=== PATIENT | male | born 1960 | race African-American/Black ===

== ENCOUNTER 2019-12-11 15:24 | Inpatient (IN) | payer BC, OTHER ==
[2019-12-11] MEDS ORDERED: MAGNESIUM CITRATE 300 ML BOTTLE PO PRN (15:31)
[2019-12-11] MEDS ORDERED: MAGNESIUM HYDROX 2400MG/30ML ORAL SUSPENSION 30 ML CUP PO PRN (15:31)
[2019-12-11] MEDS ORDERED: IBUPROFEN 400 MG TABLET (FP) PO PRN (15:31)
[2019-12-11] MEDS ORDERED: ACETAMINOPHEN 325 MG TABLET (FP) PO PRN (15:31)
[2019-12-11] MEDS ORDERED: P-EPHED 60MG/TRIPROLIDI 2.5MG TABLET PO PRN (15:31)
[2019-12-11] MEDS ORDERED: MAG HYDROX/AL HYDROX/SIMETH 30 ML UNIT-DOSE CUP PO PRN (15:31)
[2019-12-11] MEDS ORDERED: guaiFENesin 200 MG/10 ML 10 ML UNIT-DOSE CUPS PO PRN (15:31)
[2019-12-11] MEDS ORDERED: NICOTINE POLACRILEX 2 MG GUM BC PRN (15:31)
[2019-12-11] MEDS ORDERED: LOPERAMIDE HCL 2 MG CAPSULE PO PRN (15:31)
--- NOTE | 2019-12-11 15:42 | HP ---
[facility] Re[facility] Assess/Revision - Admission History Admitted to Rehab from: [facility] Date of Admission to Rehab: 12/11/19 - Findings Detox History & Physical reviewed: Yes Concur with findings: Yes Comments/Additional Findings: TRANSFERRED FROM DETOX TO REHAB ADMISSION PER PROTOCOL Inpatient Rehab Admission - Rehab Decision to Admit Inpatient rehab admission?: Yes - Initial Determination Are CD services needed?: Yes Free of communicable disease: Yes Not in need of hospitalization: Yes - Rehab Admission Criteria Previous failed treatment: Yes Poor recovery environment: Yes Comorbidities: Yes Lacks judgement: Yes Patient is meeting Inpatient Rehab admission criteria:: Yes
[2019-12-11] MEDS ORDERED: MASKS NR ONE (19:17)
[2019-12-11] MEDS ORDERED: INSULIN (NOVOLOG) ASPART 100 UNITS/ML 10ML VIAL ONE ×2 (20:57→22:04)
[2019-12-11] MEDS: THIAMINE HCL 100 MG TABLET (FP) PO SCH (21:10)
[2019-12-11] MEDS: ATORVASTATIN CA 20 MG TABLET (FP) PO SCH (21:10)
[2019-12-11] MEDS: traZODone HCL 50 MG TABLET (FP) PO SCH (21:10)
[2019-12-11] MEDS: MELATONIN 5 MG TABLETS PO SCH (21:10)
[2019-12-11] MEDS: INSULIN (LEVEMIR) 100 UNITS/ML UNITS SQ SCH (21:12)
[2019-12-11] MEDS: INSULIN SLIDING SCALE (NOVOLOG) 1 VIAL SQ SCH (21:13)
[2019-12-12] MEDS ORDERED: ARIPiprazole 15 MG TABLET PO SCH (10:00)
[2019-12-12] MEDS: amLODIPine BESYLATE 5 MG TABLET (FP) PO SCH (12:11)
[2019-12-12] MEDS: ASPIRIN 81 MG CHEWABLE TABLETS PO SCH (12:11)
[2019-12-12] MEDS: DOLUTEGRAVIR SODIUM 50 MG TABLET (NON-FORMULARY) PO SCH (12:12)
[2019-12-12] MEDS: PRENATAL VITAMINS W/ FOLIC ACID TABLET (FP) PO SCH (12:13)
[2019-12-12] MEDS: RILPIVIRINE HCL 25 MG TABLET PO SCH (12:14)
[2019-12-12] MEDS: EMTRICITABINE/TENOFOV ALAFENAM (DESCOVY) TABLET PO SCH (12:15)
[2019-12-12] MEDS: NICOTINE 21 MG/24 HOURS TOPICAL PATCH TD SCH (12:15)
--- NOTE | 2019-12-12 15:31 | CONSULT ---
[facility] Psychiatric Consult - Data Date of interview: 12/12/19 Admission source: Transfer from [address] [place] [address]. Identifying data: Detoxification completed at [address] [place] [address]. Patient has entered rehabilitation treatment to consolidate sobriety and continue maintenance medications for co-morbid mood disorder. TORREY issues : alcohol, crack/cocaine, nicotine. Patient is a 58 y/o AA male, single, father of one, domiciled, unemployed and supported on SSD benefits. Substance Abuse History: Discussed with the patient. TORREY profile as follows : Alcohol. Substance amount: 6 pack x 24 ounce. Frequency of use: Daily. Substance route: Oral. Date of Last Use: 12/06/19 (First use age 22 y). Cocaine-Crack. Substance amount: $40. Frequency of use: Daily. Substance route: Smoking. Date of Last Use: 12/05/19 (First use age 32 y). Nicotine. Substance amount: one pack. Frequency of use: Daily. Substance route: Smoking. Date of Last Use: 12/06/19 (First use age 89y)M. History Source: Patient. Limitations to Obtaining History: No Limitations. - Smoking History. Smoking history: Current every day smoker. Have you smoked in the past 12 months: Yes. Aproximately how many cigarettes per day: 20. Smoking history: Current every day smoker. Have you smoked in the past 12 months: Yes. Aproximately how many cigarettes per day: 20. Hx Chewing Tobacco Use: No. Initiated information on smoking cessation: Yes. 'Breaking Loose' booklet given: 12/06/19. - Substances abused. Alcohol. Substance route: Oral. Frequency: Daily. Amount used: vodka- 6pts / beers- 6pk. Age of first use: 22. Date of last use: 12/06/19. Crack. Substance route: Smoking. Frequency: Daily. Amount used: $300. Age of first use: 32. Date of last use: 12/05/19. Medical History: Medical profile is remarkable for hypertension and diabetes mellitus. No known allergies. Psychiatric History: Patient endorses history of " a lot of " psychiatric admissions to [facility]. Onset of psychiatric disturbances : age 32. Diagnosed with MDD (self-report). Mr Barrios sees a psychiatrist, Dr Eldridge, on a monthly basis at the [facility] clinic for medication management (ability 15 mg/day). Patient denies history of suicide attempts. Physical/Sexual Abuse/Trauma History: Patient denies. Additional Comment: Urine drug screen results: RHINA-Cocaine. Noted. Mental Status Exam - Mental Status Exam Alert and Oriented to: Time, Place, Person Cognitive Function: Good Patient Appearance: Disheveled Mood: Withdrawn Affect: Mood Congruent, Constricted Patient Behavior: Appropriate, Cooperative Speech Pattern: Clear, Appropriate Voice Loudness: Normal Thought Process: Goal Oriented Thought Disorder: Not Present Hallucinations: Denies Suicidal Ideation: Denies Homicidal Ideation: Denies Insight/Judgement: Fair Sleep: Well Appetite: Good Gait/Station: Normal Psychiatric Findings - Problem List ([place] 1, 2,3) (1) Alcohol use disorder Current Visit: Yes Status: Chronic (2) Cocaine dependence Current Visit: Yes Status: Chronic Qualifiers: Substance use status: uncomplicated Qualified Code(s): F14.20 - Cocaine dependence, uncomplicated (3) Nicotine dependence Current Visit: Yes Status: Chronic Qualifiers: Nicotine product type: cigarettes Substance use status: in withdrawal Qualified Code(s): F17.213 - Nicotine dependence, cigarettes, with withdrawal (4) History of depression Current Visit: Yes Status: Chronic - Initial Treatment Plan Initial Treatment Plan: Continuation of psychoeducation. Support. Motivational counseling. Group/individual therapy (with observance of COVID-19 guidelines : social distancing, hand washing, face mask wearing). Resumed, with the patient's consent : abilify 10 mg po daily + trazodone 50 mg po hs. Observation.
[2019-12-12] MEDS: ATORVASTATIN CA 20 MG TABLET (FP) PO SCH (22:32)
[2019-12-12] MEDS: traZODone HCL 50 MG TABLET (FP) PO SCH (22:32)
[2019-12-12] MEDS: THIAMINE HCL 100 MG TABLET (FP) PO SCH (22:32)
[2019-12-12] MEDS ORDERED: INSULIN (NOVOLOG) ASPART 100 UNITS/ML 10ML VIAL ONE (22:32)
[2019-12-12] MEDS: MELATONIN 5 MG TABLETS PO SCH (22:33)
[2019-12-12] MEDS: INSULIN SLIDING SCALE (NOVOLOG) 1 VIAL SQ SCH (22:34)
[2019-12-12] MEDS: INSULIN (LEVEMIR) 100 UNITS/ML UNITS SQ SCH (22:35)
[2019-12-13] MEDS: ASPIRIN 81 MG CHEWABLE TABLETS PO SCH (11:10)
[2019-12-13] MEDS: RILPIVIRINE HCL 25 MG TABLET PO SCH (11:10)
[2019-12-13] MEDS: NICOTINE 21 MG/24 HOURS TOPICAL PATCH TD SCH (11:10)
[2019-12-13] MEDS: PRENATAL VITAMINS W/ FOLIC ACID TABLET (FP) PO SCH (11:10)
[2019-12-13] MEDS: EMTRICITABINE/TENOFOV ALAFENAM (DESCOVY) TABLET PO SCH (11:10)
[2019-12-13] MEDS: amLODIPine BESYLATE 5 MG TABLET (FP) PO SCH (11:10)
[2019-12-13] MEDS: DOLUTEGRAVIR SODIUM 50 MG TABLET (NON-FORMULARY) PO SCH (11:11)
[2019-12-13] MEDS: ARIPiprazole 10 MG TABLET PO SCH (11:40)
[2019-12-13] MEDS ORDERED: INSULIN (NOVOLOG) ASPART 100 UNITS/ML 10ML VIAL SQ ONE (16:46)
--- NOTE | 2019-12-13 16:50 | PN ---
[facility] Progress Note Note: Patient's blood sugar is B/S 560mg/dl. Patient is asymptomatic Vital Signs Temperature 97.3 F L 12/13/19 09:30 Pulse Rate 79 12/13/19 09:30 Respiratory Rate 18 12/13/19 09:30 Blood Pressure 132/88 12/13/19 09:30 O2 Sat by Pulse Oximetry (%) 97 12/13/19 06:09 BGM Results 12/11/19 12/12/19 12/13/19 21:08 20:34 16:38 POC Glucometer 437 UNITS UNITS 420 UNITS UNITS 560 UNITS UNITS (80-120) (80-120) (80-120) Action: Insulin Novolog 10 units SQ ordered
[2019-12-13] MEDS: ATORVASTATIN CA 20 MG TABLET (FP) PO SCH (21:34)
[2019-12-13] MEDS: MELATONIN 5 MG TABLETS PO SCH (21:34)
[2019-12-13] MEDS: traZODone HCL 50 MG TABLET (FP) PO SCH (21:34)
[2019-12-13] MEDS: INSULIN (LEVEMIR) 100 UNITS/ML UNITS SQ SCH (21:34)
[2019-12-13] MEDS: THIAMINE HCL 100 MG TABLET (FP) PO SCH (21:34)
[2019-12-13] MEDS: INSULIN SLIDING SCALE (NOVOLOG) 1 VIAL SQ SCH (21:35)
[2019-12-14] MEDS: DOLUTEGRAVIR SODIUM 50 MG TABLET (NON-FORMULARY) PO SCH (10:59)
[2019-12-14] MEDS: amLODIPine BESYLATE 5 MG TABLET (FP) PO SCH (10:59)
[2019-12-14] MEDS: ASPIRIN 81 MG CHEWABLE TABLETS PO SCH (10:59)
[2019-12-14] MEDS: RILPIVIRINE HCL 25 MG TABLET PO SCH (11:00)
[2019-12-14] MEDS: ARIPiprazole 10 MG TABLET PO SCH (11:00)
[2019-12-14] MEDS: EMTRICITABINE/TENOFOV ALAFENAM (DESCOVY) TABLET PO SCH (11:01)
[2019-12-14] MEDS: NICOTINE 21 MG/24 HOURS TOPICAL PATCH TD SCH (11:02)
[2019-12-14] MEDS: PRENATAL VITAMINS W/ FOLIC ACID TABLET (FP) PO SCH (11:02)
[2019-12-14] MEDS: INSULIN SLIDING SCALE (NOVOLOG) 1 VIAL SQ SCH ×3 (11:08→21:59)
[2019-12-14] MEDS ORDERED: INSULIN (NOVOLOG) ASPART 100 UNITS/ML 10ML VIAL ONE (11:09)
[2019-12-14] MEDS: THIAMINE HCL 100 MG TABLET (FP) PO SCH (21:57)
[2019-12-14] MEDS: ATORVASTATIN CA 20 MG TABLET (FP) PO SCH (21:57)
[2019-12-14] MEDS: traZODone HCL 50 MG TABLET (FP) PO SCH (21:58)
[2019-12-14] MEDS: INSULIN (LEVEMIR) 100 UNITS/ML UNITS SQ SCH (22:00)
[2019-12-14] MEDS: MELATONIN 5 MG TABLETS PO SCH (22:02)
[2019-12-15] MEDS ORDERED: INSULIN (NOVOLOG) ASPART 100 UNITS/ML 10ML VIAL ONE (06:44)
[2019-12-15] MEDS: INSULIN SLIDING SCALE (NOVOLOG) 1 VIAL SQ SCH ×2 (06:49→11:54)
[2019-12-15] MEDS: EMTRICITABINE/TENOFOV ALAFENAM (DESCOVY) TABLET PO SCH (09:41)
[2019-12-15] MEDS: DOLUTEGRAVIR SODIUM 50 MG TABLET (NON-FORMULARY) PO SCH (09:41)
[2019-12-15] MEDS: PRENATAL VITAMINS W/ FOLIC ACID TABLET (FP) PO SCH (09:42)
[2019-12-15] MEDS: RILPIVIRINE HCL 25 MG TABLET PO SCH (09:42)
[2019-12-15] MEDS: amLODIPine BESYLATE 5 MG TABLET (FP) PO SCH (09:43)
[2019-12-15] MEDS: ASPIRIN 81 MG CHEWABLE TABLETS PO SCH (09:43)
[2019-12-15] MEDS: NICOTINE 21 MG/24 HOURS TOPICAL PATCH TD SCH (09:44)
--- NOTE | 2019-12-15 10:53 | PN ---
[facility] Progress Note Note: Pt is a 58 y/o male admitted to rehab from [address] [place] [address] after completion. PMHx:DM-insulin dependent(on Insulin Lispro 16 units sc tid with meals and Levemir 30 units sc hs. Pt brought in his insulin and requests he wants to use own insulin medications(packages unused and sealed). Pt has a prescriber, Dr. Anuradha Yung; Ph: Pt currently on Hospital formulary Novolog. HIV+(on meds) HTN(on med) HLD(on med) Vital Signs - 24 hr 12/14/19 12/14/19 12/15/19 12:47 20:28 06:38 Temperature 97.7 F Pulse Rate 94 H Respiratory 18 Rate Blood Pressure 142/75 O2 Sat by Pulse 95 95 95 Oximetry (%) Laboratory Tests 12/11/19 12/12/19 12/13/19 21:08 20:34 16:38 POC Glucometer 437 420 560 12/13/19 12/14/19 12/14/19 20:10 11:05 16:34 POC Glucometer 333 417 319 12/14/19 12/15/19 20:07 06:43 POC Glucometer 348 389 Alert o x 3 nad oob ambulating with steady gait. Rehab pt DM-uncontrolled P:Reviewed pt's insulin/BGM hx and discussed with pharmacist Poly Avitia and pt may use own medication as requested. Pt's Home Insulin Lispro restarted as 10 units sc TID with meals. Will adjust insulin with BGM monitoring results. D/w pt and he is agreeable with poc.
[2019-12-15] MEDS: ARIPiprazole 10 MG TABLET PO SCH (11:12)
[2019-12-15] MEDS: PATIENT'S OWN MEDICATION (NON-FORMULARY) (Insulin Lispro [Humalog] 10 UNIT) SQ SCH ×2 (12:00→16:42)
[2019-12-15] MEDS ORDERED: INSULIN LISPRO 16 UNIT SQ SCH (12:00)
[2019-12-15] MEDS: traZODone HCL 50 MG TABLET (FP) PO SCH (21:39)
[2019-12-15] MEDS: ATORVASTATIN CA 20 MG TABLET (FP) PO SCH (21:39)
[2019-12-15] MEDS: MELATONIN 5 MG TABLETS PO SCH (21:39)
[2019-12-15] MEDS: THIAMINE HCL 100 MG TABLET (FP) PO SCH (21:39)
[2019-12-15] MEDS: INSULIN (LEVEMIR) 100 UNITS/ML UNITS SQ SCH (21:40)
[2019-12-16] MEDS: PATIENT'S OWN MEDICATION (NON-FORMULARY) (Insulin Lispro [Humalog] 10 UNIT) SQ SCH (07:37)
[2019-12-16] MEDS: PRENATAL VITAMINS W/ FOLIC ACID TABLET (FP) PO SCH (09:49)
[2019-12-16] MEDS: ASPIRIN 81 MG CHEWABLE TABLETS PO SCH (09:49)
[2019-12-16] MEDS: EMTRICITABINE/TENOFOV ALAFENAM (DESCOVY) TABLET PO SCH (09:50)
[2019-12-16] MEDS: DOLUTEGRAVIR SODIUM 50 MG TABLET (NON-FORMULARY) PO SCH (09:50)
[2019-12-16] MEDS: amLODIPine BESYLATE 5 MG TABLET (FP) PO SCH (09:50)
[2019-12-16] MEDS: ARIPiprazole 10 MG TABLET PO SCH (09:50)
[2019-12-16] MEDS: RILPIVIRINE HCL 25 MG TABLET PO SCH (09:50)
[2019-12-16] MEDS: NICOTINE 21 MG/24 HOURS TOPICAL PATCH TD SCH (09:52)
[2019-12-16] MEDS: INSULIN LISPRO 12 UNIT SQ SCH ×2 (12:06→16:32)
--- NOTE | 2019-12-16 14:35 | PN ---
[facility] Progress Note Note: Pt requesting re-evaluation of insulin dose per BGM results. Vital Signs - 24 hr 12/15/19 12/16/19 20:33 06:15 Temperature 97.5 F L Pulse Rate 101 H Respiratory 18 Rate Blood Pressure 123/77 O2 Sat by Pulse 95 94 L Oximetry (%) Alert o x 3 nad oob ambulating with steady gait D/w pt and Increased Insulin Lispro to 12 units sc TIDCM today. Monitor BGM and adjust to pre-hospital home dose if necessary.
[2019-12-16] MEDS: traZODone HCL 50 MG TABLET (FP) PO SCH (21:21)
[2019-12-16] MEDS: INSULIN (LEVEMIR) 100 UNITS/ML UNITS SQ SCH (21:22)
[2019-12-16] MEDS: ATORVASTATIN CA 20 MG TABLET (FP) PO SCH (21:22)
[2019-12-16] MEDS: THIAMINE HCL 100 MG TABLET (FP) PO SCH (21:22)
[2019-12-16] MEDS: MELATONIN 5 MG TABLETS PO SCH (21:22)
[2019-12-17] MEDS: INSULIN LISPRO 12 UNIT SQ SCH ×3 (08:02→16:59)
[2019-12-17] MEDS ORDERED: SEMAGLUTIDE 0.5 MG SQ SCH (10:00)
[2019-12-17] MEDS: ASPIRIN 81 MG CHEWABLE TABLETS PO SCH (10:01)
[2019-12-17] MEDS: PRENATAL VITAMINS W/ FOLIC ACID TABLET (FP) PO SCH (10:01)
[2019-12-17] MEDS: amLODIPine BESYLATE 5 MG TABLET (FP) PO SCH (10:01)
[2019-12-17] MEDS: NICOTINE 21 MG/24 HOURS TOPICAL PATCH TD SCH (10:02)
[2019-12-17] MEDS: ARIPiprazole 10 MG TABLET PO SCH (10:02)
[2019-12-17] MEDS: RILPIVIRINE HCL 25 MG TABLET PO SCH (10:02)
[2019-12-17] MEDS: DOLUTEGRAVIR SODIUM 50 MG TABLET (NON-FORMULARY) PO SCH (10:03)
[2019-12-17] MEDS: EMTRICITABINE/TENOFOV ALAFENAM (DESCOVY) TABLET PO SCH (10:03)
[2019-12-17] MEDS: traZODone HCL 50 MG TABLET (FP) PO SCH (21:47)
[2019-12-17] MEDS: THIAMINE HCL 100 MG TABLET (FP) PO SCH (21:47)
[2019-12-17] MEDS: ATORVASTATIN CA 20 MG TABLET (FP) PO SCH (21:47)
[2019-12-17] MEDS: MELATONIN 5 MG TABLETS PO SCH (21:48)
[2019-12-17] MEDS: INSULIN (LEVEMIR) 100 UNITS/ML UNITS SQ SCH (21:49)
[2019-12-18] MEDS: INSULIN LISPRO 12 UNIT SQ SCH ×3 (08:09→17:19)
[2019-12-18] MEDS: amLODIPine BESYLATE 5 MG TABLET (FP) PO SCH (09:35)
[2019-12-18] MEDS: DOLUTEGRAVIR SODIUM 50 MG TABLET (NON-FORMULARY) PO SCH (09:35)
[2019-12-18] MEDS: ASPIRIN 81 MG CHEWABLE TABLETS PO SCH (09:35)
[2019-12-18] MEDS: ARIPiprazole 10 MG TABLET PO SCH (09:36)
[2019-12-18] MEDS: PRENATAL VITAMINS W/ FOLIC ACID TABLET (FP) PO SCH (09:36)
[2019-12-18] MEDS: RILPIVIRINE HCL 25 MG TABLET PO SCH (09:36)
[2019-12-18] MEDS: EMTRICITABINE/TENOFOV ALAFENAM (DESCOVY) TABLET PO SCH (09:37)
[2019-12-18] MEDS: NICOTINE 21 MG/24 HOURS TOPICAL PATCH TD SCH (09:38)
[2019-12-18] MEDS: INSULIN (LEVEMIR) 100 UNITS/ML UNITS SQ SCH (21:23)
[2019-12-18] MEDS: traZODone HCL 50 MG TABLET (FP) PO SCH (21:24)
[2019-12-18] MEDS: MELATONIN 5 MG TABLETS PO SCH (21:24)
[2019-12-18] MEDS: ATORVASTATIN CA 20 MG TABLET (FP) PO SCH (21:24)
[2019-12-18] MEDS: THIAMINE HCL 100 MG TABLET (FP) PO SCH (21:24)
[2019-12-19] MEDS: INSULIN LISPRO 12 UNIT SQ SCH (07:16)
[2019-12-19] MEDS: amLODIPine BESYLATE 5 MG TABLET (FP) PO SCH (10:35)
[2019-12-19] MEDS: ARIPiprazole 10 MG TABLET PO SCH (10:35)
[2019-12-19] MEDS: EMTRICITABINE/TENOFOV ALAFENAM (DESCOVY) TABLET PO SCH (10:35)
[2019-12-19] MEDS: PRENATAL VITAMINS W/ FOLIC ACID TABLET (FP) PO SCH (10:35)
[2019-12-19] MEDS: ASPIRIN 81 MG CHEWABLE TABLETS PO SCH (10:35)
[2019-12-19] MEDS: RILPIVIRINE HCL 25 MG TABLET PO SCH (10:36)
[2019-12-19] MEDS: DOLUTEGRAVIR SODIUM 50 MG TABLET (NON-FORMULARY) PO SCH (10:36)
[2019-12-19] MEDS: NICOTINE 21 MG/24 HOURS TOPICAL PATCH TD SCH (10:37)
--- NOTE | 2019-12-19 11:34 | PN ---
[facility] Progress Note Note: Laboratory Tests 12/11/19 12/12/19 12/13/19 21:08 20:34 16:38 POC Glucometer 437 420 560 12/13/19 12/14/19 12/14/19 20:10 11:05 16:34 POC Glucometer 333 417 319 12/14/19 12/15/19 12/15/19 20:07 06:43 11:14 POC Glucometer 348 389 340 12/15/19 12/15/19 12/16/19 16:41 20:27 06:19 POC Glucometer 347 384 414 12/16/19 12/16/19 12/16/19 12:02 16:29 19:53 POC Glucometer 233 402 312 12/17/19 12/17/19 12/17/19 06:22 11:45 16:58 POC Glucometer 434 405 386 12/17/19 12/18/19 12/18/19 20:00 06:25 11:39 POC Glucometer 393 365 341 12/18/19 12/18/19 12/19/19 17:17 21:23 06:24 POC Glucometer 395 380 313 Increase Insulin Lispro to 14 units ia TIDCM
[2019-12-19] MEDS: INSULIN (NOVOLOG) ASPART 100 UNITS/ML 10ML VIAL SQ SCH ×2 (11:48→16:33)
--- NOTE | 2019-12-19 12:10 | PN ---
[facility] Progress Note Note: Patient is scheduled for discharged tomorrow. Scripts for 30 days supply of medications(Abilify 10 mg/day, Trazadone 50 mg/hs)will be electronically transmitted to [facility], [address] [place] [id number]
[2019-12-19] MEDS: MELATONIN 5 MG TABLETS PO SCH (21:48)
[2019-12-19] MEDS: THIAMINE HCL 100 MG TABLET (FP) PO SCH (21:48)
[2019-12-19] MEDS: traZODone HCL 50 MG TABLET (FP) PO SCH (21:48)
[2019-12-19] MEDS: ATORVASTATIN CA 20 MG TABLET (FP) PO SCH (21:48)
[2019-12-19] MEDS: INSULIN (LEVEMIR) 100 UNITS/ML UNITS SQ SCH (21:49)
[2019-12-20] MEDS: INSULIN (NOVOLOG) ASPART 100 UNITS/ML 10ML VIAL SQ SCH (07:03)
[2019-12-20] MEDS ORDERED: INSULIN (NOVOLOG) ASPART 100 UNITS/ML 10ML VIAL ONE (07:05)
[2019-12-20 07:16] VITALS: BP 135/72; PULSE 97; TEMP 98
--- NOTE | 2019-12-20 08:55 | DS ---
[facility] Rehab Discharge Summary - [facility] Rehab Discharge Summary Admission Date: 12/11/19 Discharge Date: 12/20/19 - History Present History: Alcohol dependence, Cocaine dependence Pertinent Past History: HIV+ HTN IDDM HLD - Discharge Physical Exam Vital Signs: Vital Signs Temperature 98.0 F 12/20/19 06:24 Pulse Rate 97 H 12/20/19 06:24 Respiratory Rate 18 12/20/19 06:24 Blood Pressure 135/72 12/20/19 06:24 O2 Sat by Pulse Oximetry (%) 95 12/20/19 06:24 Alert o x 3 nad oob ambulating with steady gait cardiac:s1 s2,rrr lungs:ctab abdomen:protruded,+bs, nt extremities:no edema,skin dry and intact. Pertinent Admission Physical Exam Findings: Laboratory Tests 12/11/19 12/12/19 12/13/19 21:08 20:34 16:38 POC Glucometer 437 420 560 12/13/19 12/14/19 12/14/19 20:10 11:05 16:34 POC Glucometer 333 417 319 12/14/19 12/15/19 12/15/19 20:07 06:43 11:14 POC Glucometer 348 389 340 12/15/19 12/15/19 12/16/19 16:41 20:27 06:19 POC Glucometer 347 384 414 12/16/19 12/16/19 12/16/19 12:02 16:29 19:53 POC Glucometer 233 402 312 12/17/19 12/17/19 12/17/19 06:22 11:45 16:58 POC Glucometer 434 405 386 12/17/19 12/18/19 12/18/19 20:00 06:25 11:39 POC Glucometer 393 365 341 12/18/19 12/18/19 12/19/19 17:17 21:23 06:24 POC Glucometer 395 380 313 12/19/19 12/19/19 12/19/19 11:43 16:27 20:39 POC Glucometer 370 404 337 12/20/19 06:45 POC Glucometer 323 - Treatment Discharge Condition: Discharge condition good Hospital Course: Pt completed rehab and discharging today. CD aftercare referral accepted to [facility] - Medication Discharge Medications: Ambulatory Orders Amlodipine Besylate [Norvasc -] 5 mg PO DAILY 12/06/19 Aspirin [ASA -] 81 mg PO DAILY 12/06/19 Atorvastatin Ca [Lipitor] 20 mg PO HS 12/06/19 Diphenhydramine [Benadryl Capsule -] 50 mg PO HS PRN 12/06/19 Dolutegravir Sodium [Tivicay] 50 mg PO DAILY 12/06/19 Emtricitabine/Tenofov Alafenam [Descovy 200-25 mg Tablet] 1 each PO DAILY 12/06/19 Insulin (Levemir) [Levemir Vial] 30 unit SQ HS 12/06/19 Insulin Lispro [Humalog] 16 unit SQ TIDCM 12/06/19 Rilpivirine HCl [Edurant] 25 mg PO DAILY 12/06/19 Semaglutide [Ozempic] 0.5 mg SQ WEEKLY 12/06/19 Aripiprazole [Abilify -] 10 mg PO DAILY #30 tablet 12/19/19 traZODone HCL [Trazodone HCl] 50 mg PO HS #30 tablet 12/19/19 - Medication-Assisted Treatment (MAT) Medication-Assisted Treatment (MAT): No - Discharge Instructions Diet, activity, other medical instructions: Diet:NCS/JOSE ENRIQUE Activity: oob ad chris Other medical instructions:Follow up with CD aftercare as recommended. Follow up with medical management with PCP Dr. Anuradha Yung at [facility] as scheduled. - Diagnosis (1) Alcohol use disorder Current Visit: Yes Status: Chronic (2) Cocaine dependence Current Visit: Yes Status: Chronic Qualifiers: Substance use status: uncomplicated Qualified Code(s): F14.20 - Cocaine dependence, uncomplicated (3) Nicotine dependence Current Visit: Yes Status: Chronic Qualifiers: Nicotine product type: cigarettes Substance use status: in withdrawal Qualified Code(s): F17.213 - Nicotine dependence, cigarettes, with withdrawal (4) IDDM (insulin dependent diabetes mellitus) Current Visit: No Status: Chronic (5) Hypertension Current Visit: Yes Status: Chronic Qualifiers: Hypertension type: essential hypertension Qualified Code(s): I10 - Essential (primary) hypertension (6) HLD (hyperlipidemia) Current Visit: Yes Status: Chronic Qualifiers: Hyperlipidemia type: unspecified Qualified Code(s): E78.5 - Hyperlipidemia, unspecified (7) HIV (human immunodeficiency virus infection) Current Visit: Yes Status: Chronic Qualifiers: HIV symptom status: unspecified Qualified Code(s): B20 - Human immunodeficiency virus [HIV] disease (8) History of depression Current Visit: Yes Status: Chronic - Follow-up Referral Minutes to complete discharge: 30 - AMA Did Patient Leave Against Medical Advice: No Additional Comments: Pt has own medications and will follow up with his PCP Dr. Anuradha Thapa @ [facility] for medical management after discharge.
[2019-12-20] MEDS: PRENATAL VITAMINS W/ FOLIC ACID TABLET (FP) PO SCH (09:06)
[2019-12-20] MEDS: DOLUTEGRAVIR SODIUM 50 MG TABLET (NON-FORMULARY) PO SCH (09:07)
[2019-12-20] MEDS: RILPIVIRINE HCL 25 MG TABLET PO SCH (09:07)
[2019-12-20] MEDS: amLODIPine BESYLATE 5 MG TABLET (FP) PO SCH (09:07)
[2019-12-20] MEDS: ASPIRIN 81 MG CHEWABLE TABLETS PO SCH (09:07)
[2019-12-20] MEDS: EMTRICITABINE/TENOFOV ALAFENAM (DESCOVY) TABLET PO SCH (09:07)
[2019-12-20] MEDS: ARIPiprazole 10 MG TABLET PO SCH (09:08)
[2019-12-20] MEDS: NICOTINE 21 MG/24 HOURS TOPICAL PATCH TD SCH (09:09)
== END 2019-12-20 10:34 | disposition home or self-care (01) | DRG 895 ==
LOC: YASAS 15:24 → Y5N 15:25
PROVIDERS: ADMIT Allergy & Immunology; ATTEND Allergy & Immunology
PROC: HZ42ZZZ Group Counseling for Substance Abuse Treatment, Cognitive-Behavioral (ICD-10-PCS; principal; 2019-12-11)
DX: F10.20 Alcohol dependence, uncomplicated (principal); F14.20 Cocaine dependence, uncomplicated; F17.210 Nicotine dependence, cigarettes, uncomplicated; F32.9 Major depressive disorder, single episode, unspecified; Z21 Asymptomatic human immunodeficiency virus [HIV] infection status; E78.5 Hyperlipidemia, unspecified; I10 Essential (primary) hypertension; E11.65 Type 2 diabetes mellitus with hyperglycemia; Z79.4 Long term (current) use of insulin; Z56.0 Unemployment, unspecified
CPT/HCPCS: 82962

== ENCOUNTER 2020-03-06 09:33 | Inpatient (IN) | payer BC, OTHER ==
[2020-03-06 10:16] VITALS: BMI 32.5
[2020-03-06] MEDS ORDERED: ACETAMINOPHEN 325 MG TABLET (FP) PO PRN ×2 (10:56)
[2020-03-06] MEDS ORDERED: MAGNESIUM HYDROX 2400MG/30ML ORAL SUSPENSION 30 ML CUP PO PRN (10:56)
[2020-03-06] MEDS ORDERED: NICOTINE POLACRILEX 2 MG GUM BUC PRN (10:56)
[2020-03-06] MEDS ORDERED: MENTHOL/PHENOL 1 EACH UD MM PRN (10:56)
[2020-03-06] MEDS ORDERED: BISMUTH SUBSALICYLATE 262 MG/15 ML BTL PO PRN (10:56)
[2020-03-06] MEDS ORDERED: IBUPROFEN 400 MG TABLET (FP) PO PRN (10:56)
[2020-03-06] MEDS ORDERED: chlordiazePOXIDE HCL 25 MG CAPSULE PO PRN (10:56)
[2020-03-06] MEDS ORDERED: METHOCARBAMOL 500 MG TABLET PO PRN (10:56)
[2020-03-06] MEDS ORDERED: MAG HYDROX/AL HYDROX/SIMETH 30 ML UNIT-DOSE CUP PO PRN (10:56)
[2020-03-06] MEDS ORDERED: ONDANSETRON *ODT* 4 MG TABLET SL PRN (10:56)
[2020-03-06] MEDS ORDERED: MAGNESIUM CITRATE 300 ML BOTTLE PO PRN (10:56)
[2020-03-06] MEDS: ASPIRIN 81 MG CHEWABLE TABLETS PO SCH (11:47)
[2020-03-06] MEDS: amLODIPine BESYLATE 5 MG TABLET (FP) PO SCH (11:48)
[2020-03-06] MEDS: metFORMIN HCL 500 MG TABLET (FP) PO SCH ×2 (11:48→17:15)
[2020-03-06] MEDS: PRENATAL VITAMINS W/ FOLIC ACID TABLET (FP) PO SCH (11:50)
[2020-03-06] MEDS: NICOTINE 21 MG/24 HOURS TOPICAL PATCH TD SCH (11:50)
[2020-03-06] MEDS: EMTRICITABINE/TENOFOV ALAFENAM (DESCOVY) TABLET PO SCH (12:23)
[2020-03-06] MEDS: DOLUTEGRAVIR SODIUM 50 MG TABLET (NON-FORMULARY) PO SCH (12:23)
[2020-03-06] MEDS: RILPIVIRINE HCL 25 MG TABLET PO SCH (12:24)
[2020-03-06] MEDS: Insulin (LOG) Aspart 100 UNITS/ML VIAL SQ SCH ×2 (12:26→17:18)
[2020-03-06] MEDS ORDERED: INSULIN SLIDING SCALE (NOVOLOG) 1 VIAL SQ ONE (12:27)
[2020-03-06] MEDS: hydrOXYzine PAMOATE 25 MG CAPSULE (FP) PO SCH ×3 (13:58→22:22)
[2020-03-06 14:44] LABS: BLOOD UREA NITROGEN 22.3 mg/dL (7-18); CALCIUM 9.9 mg/dL (8.5-10.1)
[2020-03-06 14:45] LABS: ALBUMIN 3.7 g/dl (3.4-5.0)
[2020-03-06 14:47] LABS: CREATININE 1.3 mg/dL (0.55-1.3)
[2020-03-06 14:49] LABS: BILIRUBIN,TOTAL 0.9 mg/dL (0.2-1)
[2020-03-06 14:58] LABS: HEMATOCRIT 41.4 % (35.4-49); HEMOGLOBIN 13.7 GM/dL (11.7-16.9); MCH 31.1 pg (25.7-33.7); MCHC 33.2 g/dl (32.0-35.9); MEAN CELL VOLUME 93.6 fl (80-96); MEAN PLT VOLUME 9.6 fl (7.5-11.1); PLATELET COUNT 304 K/MM3 (134-434); RBC 4.42 M/mm3 (4.00-5.60); WHITE BLOOD COUNT 8.9 K/mm3 (4.0-10.0)
[2020-03-06] MEDS: chlordiazePOXIDE HCL 25 MG CAPSULE PO SCH ×2 (17:15→22:23)
[2020-03-06] MEDS: THIAMINE HCL 100 MG TABLET (FP) PO SCH (22:22)
[2020-03-06] MEDS: ATORVASTATIN CA 20 MG TABLET (FP) PO SCH (22:22)
[2020-03-06] MEDS: MELATONIN 5 MG TABLETS PO SCH (22:22)
[2020-03-06] MEDS: INSULIN (LEVEMIR) 100 UNITS/ML UNITS SQ SCH (22:25)
[2020-03-07] MEDS: hydrOXYzine PAMOATE 25 MG CAPSULE (FP) PO SCH ×5 (05:22→22:18)
[2020-03-07] MEDS: chlordiazePOXIDE HCL 25 MG CAPSULE PO SCH ×4 (05:22→22:18)
[2020-03-07] MEDS ORDERED: MASKS NR ONE (05:25)
[2020-03-07] MEDS: metFORMIN HCL 500 MG TABLET (FP) PO SCH ×2 (06:12→17:42)
[2020-03-07] MEDS: Insulin (LOG) Aspart 100 UNITS/ML VIAL SQ SCH ×3 (07:41→17:45)
[2020-03-07] MEDS ORDERED: LOPERAMIDE HCL 2 MG CAPSULE PO ONE (09:57)
[2020-03-07] MEDS: PRENATAL VITAMINS W/ FOLIC ACID TABLET (FP) PO SCH (10:27)
[2020-03-07] MEDS: DOLUTEGRAVIR SODIUM 50 MG TABLET (NON-FORMULARY) PO SCH (10:27)
[2020-03-07] MEDS: EMTRICITABINE/TENOFOV ALAFENAM (DESCOVY) TABLET PO SCH (10:28)
[2020-03-07] MEDS: ASPIRIN 81 MG CHEWABLE TABLETS PO SCH (10:28)
[2020-03-07] MEDS: RILPIVIRINE HCL 25 MG TABLET PO SCH (10:28)
[2020-03-07] MEDS: amLODIPine BESYLATE 5 MG TABLET (FP) PO SCH (10:29)
[2020-03-07] MEDS: NICOTINE 21 MG/24 HOURS TOPICAL PATCH TD SCH (10:30)
[2020-03-07] MEDS ORDERED: INSULIN SLIDING SCALE (NOVOLOG) 1 VIAL SQ ONE (16:57)
[2020-03-07] MEDS: ATORVASTATIN CA 20 MG TABLET (FP) PO SCH (22:18)
[2020-03-07] MEDS: INSULIN (LEVEMIR) 100 UNITS/ML UNITS SQ SCH (22:18)
[2020-03-07] MEDS: traZODone HCL 50 MG TABLET (FP) PO SCH (22:18)
[2020-03-07] MEDS: THIAMINE HCL 100 MG TABLET (FP) PO SCH (22:18)
[2020-03-07] MEDS: MELATONIN 5 MG TABLETS PO SCH (22:18)
[2020-03-08] MEDS: chlordiazePOXIDE HCL 25 MG CAPSULE PO SCH ×4 (05:26→22:31)
[2020-03-08] MEDS: hydrOXYzine PAMOATE 25 MG CAPSULE (FP) PO SCH ×5 (05:26→22:31)
[2020-03-08] MEDS: metFORMIN HCL 500 MG TABLET (FP) PO SCH ×2 (06:04→17:52)
[2020-03-08] MEDS ORDERED: INSULIN SLIDING SCALE (NOVOLOG) 1 VIAL SQ ONE ×2 (08:03→12:02)
[2020-03-08] MEDS: Insulin (LOG) Aspart 100 UNITS/ML VIAL SQ SCH ×3 (08:06→17:54)
[2020-03-08] MEDS: RILPIVIRINE HCL 25 MG TABLET PO SCH (10:09)
[2020-03-08] MEDS: PRENATAL VITAMINS W/ FOLIC ACID TABLET (FP) PO SCH (10:09)
[2020-03-08] MEDS: DOLUTEGRAVIR SODIUM 50 MG TABLET (NON-FORMULARY) PO SCH (10:09)
[2020-03-08] MEDS: EMTRICITABINE/TENOFOV ALAFENAM (DESCOVY) TABLET PO SCH (10:09)
[2020-03-08] MEDS: amLODIPine BESYLATE 5 MG TABLET (FP) PO SCH (10:09)
[2020-03-08] MEDS: ASPIRIN 81 MG CHEWABLE TABLETS PO SCH (10:09)
[2020-03-08] MEDS: NICOTINE 21 MG/24 HOURS TOPICAL PATCH TD SCH (10:10)
[2020-03-08] MEDS: traZODone HCL 50 MG TABLET (FP) PO SCH (22:31)
[2020-03-08] MEDS: ATORVASTATIN CA 20 MG TABLET (FP) PO SCH (22:31)
[2020-03-08] MEDS: THIAMINE HCL 100 MG TABLET (FP) PO SCH (22:31)
[2020-03-08] MEDS: MELATONIN 5 MG TABLETS PO SCH (22:31)
[2020-03-08] MEDS: INSULIN (LEVEMIR) 100 UNITS/ML UNITS SQ SCH (22:33)
[2020-03-09] MEDS ORDERED: chlordiazePOXIDE HCL 10 MG CAPSULE PO PRN
[2020-03-09] MEDS: hydrOXYzine PAMOATE 25 MG CAPSULE (FP) PO SCH ×5 (05:42→22:36)
[2020-03-09] MEDS: chlordiazePOXIDE HCL 10 MG CAPSULE PO SCH ×4 (05:43→22:36)
[2020-03-09] MEDS: metFORMIN HCL 500 MG TABLET (FP) PO SCH ×2 (06:45→17:33)
[2020-03-09] MEDS: Insulin (LOG) Aspart 100 UNITS/ML VIAL SQ SCH ×3 (07:21→17:37)
[2020-03-09] MEDS: ASPIRIN 81 MG CHEWABLE TABLETS PO SCH (10:07)
[2020-03-09] MEDS: DOLUTEGRAVIR SODIUM 50 MG TABLET (NON-FORMULARY) PO SCH (10:08)
[2020-03-09] MEDS: NICOTINE 21 MG/24 HOURS TOPICAL PATCH TD SCH (10:08)
[2020-03-09] MEDS: PRENATAL VITAMINS W/ FOLIC ACID TABLET (FP) PO SCH (10:08)
[2020-03-09] MEDS: amLODIPine BESYLATE 5 MG TABLET (FP) PO SCH (10:08)
[2020-03-09] MEDS: EMTRICITABINE/TENOFOV ALAFENAM (DESCOVY) TABLET PO SCH (10:08)
[2020-03-09] MEDS: RILPIVIRINE HCL 25 MG TABLET PO SCH (10:08)
[2020-03-09] MEDS ORDERED: INSULIN SLIDING SCALE (NOVOLOG) 1 VIAL SQ SCH (11:00)
[2020-03-09] MEDS ORDERED: INSULIN SLIDING SCALE (NOVOLOG) 1 VIAL SQ ONE (11:55)
[2020-03-09] MEDS ORDERED: ARIPiprazole 10 MG TABLET PO SCH (22:00)
[2020-03-09] MEDS ORDERED: diphenhydrAMINE HCL 50 MG CAPSULE PO PRN (22:00)
[2020-03-09] MEDS: INSULIN (LEVEMIR) 100 UNITS/ML UNITS SQ SCH (22:36)
[2020-03-09] MEDS: THIAMINE HCL 100 MG TABLET (FP) PO SCH (22:36)
[2020-03-09] MEDS: ATORVASTATIN CA 20 MG TABLET (FP) PO SCH (22:36)
[2020-03-09] MEDS: MELATONIN 5 MG TABLETS PO SCH (22:36)
[2020-03-10] MEDS: chlordiazePOXIDE HCL 10 MG CAPSULE PO SCH ×2 (06:09→17:26)
[2020-03-10] MEDS: hydrOXYzine PAMOATE 25 MG CAPSULE (FP) PO SCH ×5 (06:09→22:22)
[2020-03-10] MEDS: metFORMIN HCL 500 MG TABLET (FP) PO SCH ×2 (06:10→17:26)
[2020-03-10] MEDS: Insulin (LOG) Aspart 100 UNITS/ML VIAL SQ SCH ×3 (07:39→17:28)
[2020-03-10] MEDS ORDERED: fluPHENAZine DECANOATE 125 MG/5ML VIAL IM ONE (09:00)
[2020-03-10] MEDS ORDERED: SEMAGLUTIDE 0.5 MG SQ SCH (10:00)
[2020-03-10] MEDS: DOLUTEGRAVIR SODIUM 50 MG TABLET (NON-FORMULARY) PO SCH (10:32)
[2020-03-10] MEDS: RILPIVIRINE HCL 25 MG TABLET PO SCH (10:32)
[2020-03-10] MEDS: EMTRICITABINE/TENOFOV ALAFENAM (DESCOVY) TABLET PO SCH (10:32)
[2020-03-10] MEDS: ASPIRIN 81 MG CHEWABLE TABLETS PO SCH (10:32)
[2020-03-10] MEDS: amLODIPine BESYLATE 5 MG TABLET (FP) PO SCH (10:33)
[2020-03-10] MEDS: NICOTINE 21 MG/24 HOURS TOPICAL PATCH TD SCH (10:33)
[2020-03-10] MEDS: PRENATAL VITAMINS W/ FOLIC ACID TABLET (FP) PO SCH (10:34)
[2020-03-10] MEDS ORDERED: INSULIN SLIDING SCALE (NOVOLOG) 1 VIAL SQ ONE ×3 (11:02→16:39)
[2020-03-10] MEDS: MELATONIN 5 MG TABLETS PO SCH (22:22)
[2020-03-10] MEDS: INSULIN (LEVEMIR) 100 UNITS/ML UNITS SQ SCH (22:22)
[2020-03-10] MEDS: ATORVASTATIN CA 20 MG TABLET (FP) PO SCH (22:22)
[2020-03-10] MEDS: THIAMINE HCL 100 MG TABLET (FP) PO SCH (22:22)
[2020-03-11] MEDS ORDERED: INSULIN SLIDING SCALE (NOVOLOG) 1 VIAL SQ ONE ×3 (01:30→16:51)
[2020-03-11] MEDS ORDERED: chlordiazePOXIDE HCL 10 MG CAPSULE PO ONE (05:00)
[2020-03-11] MEDS: hydrOXYzine PAMOATE 25 MG CAPSULE (FP) PO SCH ×5 (05:24→21:36)
[2020-03-11] MEDS: metFORMIN HCL 500 MG TABLET (FP) PO SCH ×2 (06:32→17:14)
[2020-03-11] MEDS: Insulin (LOG) Aspart 100 UNITS/ML VIAL SQ SCH ×3 (07:58→17:14)
[2020-03-11] MEDS: PRENATAL VITAMINS W/ FOLIC ACID TABLET (FP) PO SCH (10:29)
[2020-03-11] MEDS: amLODIPine BESYLATE 5 MG TABLET (FP) PO SCH (10:30)
[2020-03-11] MEDS: ASPIRIN 81 MG CHEWABLE TABLETS PO SCH (10:30)
[2020-03-11] MEDS: DOLUTEGRAVIR SODIUM 50 MG TABLET (NON-FORMULARY) PO SCH (10:30)
[2020-03-11] MEDS: RILPIVIRINE HCL 25 MG TABLET PO SCH (10:31)
[2020-03-11] MEDS: EMTRICITABINE/TENOFOV ALAFENAM (DESCOVY) TABLET PO SCH (10:31)
[2020-03-11] MEDS: NICOTINE 21 MG/24 HOURS TOPICAL PATCH TD SCH (10:31)
[2020-03-11] MEDS: INSULIN (LEVEMIR) 100 UNITS/ML UNITS SQ SCH (21:35)
[2020-03-11] MEDS: ATORVASTATIN CA 20 MG TABLET (FP) PO SCH (21:36)
[2020-03-11] MEDS: THIAMINE HCL 100 MG TABLET (FP) PO SCH (21:36)
[2020-03-11] MEDS: MELATONIN 5 MG TABLETS PO SCH (21:36)
[2020-03-12] MEDS ORDERED: chlordiazePOXIDE 5 MG CAPSULE PO ONE (05:00)
[2020-03-12] MEDS: hydrOXYzine PAMOATE 25 MG CAPSULE (FP) PO SCH ×2 (05:55→09:56)
[2020-03-12] MEDS: metFORMIN HCL 500 MG TABLET (FP) PO SCH (06:29)
[2020-03-12] MEDS ORDERED: INSULIN SLIDING SCALE (NOVOLOG) 1 VIAL SQ ONE (06:30)
[2020-03-12] MEDS: Insulin (LOG) Aspart 100 UNITS/ML VIAL SQ SCH (07:55)
[2020-03-12 09:16] VITALS: BP 114/79; PULSE 101; TEMP 97.3
[2020-03-12] MEDS: DOLUTEGRAVIR SODIUM 50 MG TABLET (NON-FORMULARY) PO SCH (09:54)
[2020-03-12] MEDS: ASPIRIN 81 MG CHEWABLE TABLETS PO SCH (09:54)
[2020-03-12] MEDS: EMTRICITABINE/TENOFOV ALAFENAM (DESCOVY) TABLET PO SCH (09:54)
[2020-03-12] MEDS: amLODIPine BESYLATE 5 MG TABLET (FP) PO SCH (09:54)
[2020-03-12] MEDS: PRENATAL VITAMINS W/ FOLIC ACID TABLET (FP) PO SCH (09:54)
[2020-03-12] MEDS: RILPIVIRINE HCL 25 MG TABLET PO SCH (09:54)
[2020-03-12] MEDS: NICOTINE 21 MG/24 HOURS TOPICAL PATCH TD SCH (09:56)
== END 2020-03-12 11:25 | disposition home or self-care (01) | DRG 897 ==
LOC: YASAS 09:33 → Y3N 10:34
PROVIDERS: ADMIT Allergy & Immunology; ATTEND Allergy & Immunology
PROC: HZ2ZZZZ Detoxification Services for Substance Abuse Treatment (ICD-10-PCS; principal; 2020-03-06)
DX: F10.230 Alcohol dependence with withdrawal, uncomplicated (principal); F14.20 Cocaine dependence, uncomplicated; F17.210 Nicotine dependence, cigarettes, uncomplicated; F25.9 Schizoaffective disorder, unspecified; Z21 Asymptomatic human immunodeficiency virus [HIV] infection status; I10 Essential (primary) hypertension; E78.5 Hyperlipidemia, unspecified; E11.9 Type 2 diabetes mellitus without complications; Z79.4 Long term (current) use of insulin; Z98.890 Other specified postprocedural states
CPT/HCPCS: 36415; 80053; 82962; 85027; 86780; C9803; U0003

== ENCOUNTER 2020-03-29 11:17 | Inpatient (IN) | payer BC, OTHER ==
[2020-03-29] MEDS ORDERED: MAG HYDROX/AL HYDROX/SIMETH 30 ML UNIT-DOSE CUP PO PRN (15:35)
[2020-03-29] MEDS ORDERED: P-EPHED 60MG/TRIPROLIDI 2.5MG TABLET PO PRN (15:35)
[2020-03-29] MEDS ORDERED: MAGNESIUM CITRATE 300 ML BOTTLE PO PRN (15:35)
[2020-03-29] MEDS ORDERED: MAGNESIUM HYDROX 2400MG/30ML ORAL SUSPENSION 30 ML CUP PO PRN (15:35)
[2020-03-29] MEDS ORDERED: IBUPROFEN 400 MG TABLET (FP) PO PRN (15:35)
[2020-03-29] MEDS ORDERED: guaiFENesin 200 MG/10 ML 10 ML UNIT-DOSE CUPS PO PRN (15:35)
[2020-03-29] MEDS ORDERED: LOPERAMIDE HCL 2 MG CAPSULE PO PRN (15:35)
[2020-03-29] MEDS ORDERED: ACETAMINOPHEN 325 MG TABLET (FP) PO PRN (15:35)
[2020-03-29] MEDS ORDERED: NICOTINE POLACRILEX 2 MG GUM BUC PRN (15:35)
[2020-03-29 15:39] VITALS: BMI 32.9
[2020-03-29] MEDS ORDERED: diphenhydrAMINE HCL 50 MG CAPSULE PO PRN (16:13)
[2020-03-29] MEDS ORDERED: INSULIN (NOVOLOG) ASPART 100 UNITS/ML 10ML VIAL ONE (17:24)
[2020-03-29] MEDS: Insulin (LOG) Aspart 100 UNITS/ML VIAL SQ SCH (17:26)
[2020-03-29] MEDS: NICOTINE 21 MG/24 HOURS TOPICAL PATCH TD SCH (17:27)
[2020-03-29] MEDS: amLODIPine BESYLATE 5 MG TABLET (FP) PO SCH (17:28)
[2020-03-29] MEDS: hydrOXYzine PAMOATE 25 MG CAPSULE (FP) PO SCH ×2 (17:28→21:57)
[2020-03-29] MEDS: ASPIRIN 81 MG CHEWABLE TABLETS PO SCH (17:28)
[2020-03-29] MEDS: INSULIN (LEVEMIR) 100 UNITS/ML UNITS SQ SCH (21:54)
[2020-03-29] MEDS: ATORVASTATIN CA 20 MG TABLET (FP) PO SCH (21:57)
[2020-03-29] MEDS: metFORMIN HCL 500 MG TABLET (FP) PO SCH (21:57)
[2020-03-29] MEDS: MELATONIN 5 MG TABLETS PO SCH (21:57)
[2020-03-29] MEDS: THIAMINE HCL 100 MG TABLET (FP) PO SCH (21:58)
[2020-03-30] MEDS ORDERED: INSULIN (NOVOLOG) ASPART 100 UNITS/ML 10ML VIAL ONE ×2 (05:46→16:51)
[2020-03-30] MEDS: hydrOXYzine PAMOATE 25 MG CAPSULE (FP) PO SCH ×5 (07:13→21:23)
[2020-03-30] MEDS: Insulin (LOG) Aspart 100 UNITS/ML VIAL SQ SCH ×2 (07:14→16:53)
[2020-03-30] MEDS: amLODIPine BESYLATE 5 MG TABLET (FP) PO SCH (10:06)
[2020-03-30] MEDS: ASPIRIN 81 MG CHEWABLE TABLETS PO SCH (10:07)
[2020-03-30] MEDS: metFORMIN HCL 500 MG TABLET (FP) PO SCH (10:07)
[2020-03-30] MEDS: NICOTINE 21 MG/24 HOURS TOPICAL PATCH TD SCH (10:07)
[2020-03-30] MEDS: DOLUTEGRAVIR SODIUM 50 MG TABLET (NON-FORMULARY) PO SCH (10:08)
[2020-03-30] MEDS: PRENATAL VITAMINS W/ FOLIC ACID TABLET (FP) PO SCH (10:08)
[2020-03-30] MEDS: EMTRICITABINE/TENOFOV ALAFENAM (DESCOVY) TABLET PO SCH (10:08)
[2020-03-30] MEDS: RILPIVIRINE HCL 25 MG TABLET PO SCH (10:08)
[2020-03-30 10:29] LABS: HEMATOCRIT 40.1 % (35.4-49); HEMOGLOBIN 13.2 GM/dL (11.7-16.9); MCH 31.7 pg (25.7-33.7); MEAN CELL VOLUME 96.1 fl (80-96); MEAN PLT VOLUME 9.3 fl (7.5-11.1); PLATELET COUNT 298 K/MM3 (134-434); RBC 4.17 M/mm3 (4.00-5.60); RDW 13.1 % (11.9-15.9); WHITE BLOOD COUNT 6.8 K/mm3 (4.0-10.0)
[2020-03-30 10:35] LABS: POTASSIUM 3.9 mmol/L (3.5-5.1)
[2020-03-30 10:42] LABS: ALBUMIN 3.3 g/dl (3.4-5.0); BLOOD UREA NITROGEN 10.4 mg/dL (7-18); CALCIUM 9.2 mg/dL (8.5-10.1)
[2020-03-30 10:45] LABS: CREATININE 1.2 mg/dL (0.55-1.3)
[2020-03-30 10:47] LABS: BILIRUBIN,TOTAL 1.1 mg/dL (0.2-1); TOT PROT 8.9 g/dl (6.4-8.2)
[2020-03-30 10:52] LABS: SICKLE CELL SCREEN NEGATIVE (NEGATIVE)
[2020-03-30] MEDS: INSULIN (LEVEMIR) 100 UNITS/ML UNITS SQ SCH (21:21)
[2020-03-30] MEDS: ATORVASTATIN CA 20 MG TABLET (FP) PO SCH (21:22)
[2020-03-30] MEDS: THIAMINE HCL 100 MG TABLET (FP) PO SCH (21:22)
[2020-03-30] MEDS: MELATONIN 5 MG TABLETS PO SCH (21:22)
[2020-03-31] MEDS: metFORMIN HCL 500 MG TABLET (FP) PO SCH ×2 (06:28→17:06)
[2020-03-31] MEDS: hydrOXYzine PAMOATE 25 MG CAPSULE (FP) PO SCH ×5 (06:28→21:39)
[2020-03-31] MEDS: DOLUTEGRAVIR SODIUM 50 MG TABLET (NON-FORMULARY) PO SCH (07:16)
[2020-03-31] MEDS ORDERED: INSULIN (NOVOLOG) ASPART 100 UNITS/ML 10ML VIAL ONE (07:20)
[2020-03-31] MEDS: Insulin (LOG) Aspart 100 UNITS/ML VIAL SQ SCH ×2 (07:35→17:06)
[2020-03-31 09:33] LABS: URINE APPEARANCE CLEAR; URINE BILIRUBIN NEGATIVE (NEGATIVE); URINE COLOR YELLOW; URINE GLUCOSE (UA) NEGATIVE (NEGATIVE); URINE KETONE NEGATIVE (NEGATIVE); URINE LEUK ESTERASE NEGATIVE (NEGATIVE); URINE NITRITE NEGATIVE (NEGATIVE); URINE PROTEIN NEGATIVE (NEGATIVE)
[2020-03-31] MEDS: ASPIRIN 81 MG CHEWABLE TABLETS PO SCH (09:36)
[2020-03-31] MEDS: NICOTINE 21 MG/24 HOURS TOPICAL PATCH TD SCH (09:37)
[2020-03-31] MEDS: amLODIPine BESYLATE 5 MG TABLET (FP) PO SCH (09:37)
[2020-03-31] MEDS: PRENATAL VITAMINS W/ FOLIC ACID TABLET (FP) PO SCH (09:38)
[2020-03-31] MEDS: RILPIVIRINE HCL 25 MG TABLET PO SCH (09:39)
[2020-03-31] MEDS: EMTRICITABINE/TENOFOV ALAFENAM (DESCOVY) TABLET PO SCH (09:39)
[2020-03-31] MEDS: MELATONIN 5 MG TABLETS PO SCH (21:37)
[2020-03-31] MEDS: THIAMINE HCL 100 MG TABLET (FP) PO SCH (21:37)
[2020-03-31] MEDS: ATORVASTATIN CA 20 MG TABLET (FP) PO SCH (21:38)
[2020-03-31] MEDS: INSULIN (LEVEMIR) 100 UNITS/ML UNITS SQ SCH (21:38)
[2020-04-01] MEDS: hydrOXYzine PAMOATE 25 MG CAPSULE (FP) PO SCH ×5 (06:39→21:35)
[2020-04-01] MEDS: metFORMIN HCL 500 MG TABLET (FP) PO SCH ×2 (06:39→16:43)
[2020-04-01] MEDS: DOLUTEGRAVIR SODIUM 50 MG TABLET (NON-FORMULARY) PO SCH (07:08)
[2020-04-01] MEDS ORDERED: INSULIN (NOVOLOG) ASPART 100 UNITS/ML 10ML VIAL ONE ×2 (07:24→16:43)
[2020-04-01] MEDS: Insulin (LOG) Aspart 100 UNITS/ML VIAL SQ SCH ×2 (07:26→16:46)
[2020-04-01] MEDS: PRENATAL VITAMINS W/ FOLIC ACID TABLET (FP) PO SCH (09:37)
[2020-04-01] MEDS: ASPIRIN 81 MG CHEWABLE TABLETS PO SCH (09:37)
[2020-04-01] MEDS: EMTRICITABINE/TENOFOV ALAFENAM (DESCOVY) TABLET PO SCH (09:38)
[2020-04-01] MEDS: RILPIVIRINE HCL 25 MG TABLET PO SCH (09:38)
[2020-04-01] MEDS: amLODIPine BESYLATE 5 MG TABLET (FP) PO SCH (09:38)
[2020-04-01] MEDS: NICOTINE 21 MG/24 HOURS TOPICAL PATCH TD SCH (09:39)
[2020-04-01] MEDS: MELATONIN 5 MG TABLETS PO SCH (21:34)
[2020-04-01] MEDS: INSULIN (LEVEMIR) 100 UNITS/ML UNITS SQ SCH (21:35)
[2020-04-01] MEDS: ATORVASTATIN CA 20 MG TABLET (FP) PO SCH (21:35)
[2020-04-01] MEDS: THIAMINE HCL 100 MG TABLET (FP) PO SCH (21:35)
[2020-04-02] MEDS: metFORMIN HCL 500 MG TABLET (FP) PO SCH ×2 (06:29→16:53)
[2020-04-02] MEDS: hydrOXYzine PAMOATE 25 MG CAPSULE (FP) PO SCH ×5 (06:29→21:53)
[2020-04-02] MEDS ORDERED: INSULIN (NOVOLOG) ASPART 100 UNITS/ML 10ML VIAL ONE ×2 (06:30→16:50)
[2020-04-02] MEDS: Insulin (LOG) Aspart 100 UNITS/ML VIAL SQ SCH ×2 (06:33→16:55)
[2020-04-02] MEDS: DOLUTEGRAVIR SODIUM 50 MG TABLET (NON-FORMULARY) PO SCH (07:31)
[2020-04-02] MEDS: ASPIRIN 81 MG CHEWABLE TABLETS PO SCH (09:53)
[2020-04-02] MEDS: EMTRICITABINE/TENOFOV ALAFENAM (DESCOVY) TABLET PO SCH (09:53)
[2020-04-02] MEDS: PRENATAL VITAMINS W/ FOLIC ACID TABLET (FP) PO SCH (09:53)
[2020-04-02] MEDS: NICOTINE 21 MG/24 HOURS TOPICAL PATCH TD SCH (09:53)
[2020-04-02] MEDS: RILPIVIRINE HCL 25 MG TABLET PO SCH (09:53)
[2020-04-02] MEDS: amLODIPine BESYLATE 5 MG TABLET (FP) PO SCH (09:53)
[2020-04-02] MEDS: THIAMINE HCL 100 MG TABLET (FP) PO SCH (21:53)
[2020-04-02] MEDS: INSULIN (LEVEMIR) 100 UNITS/ML UNITS SQ SCH (21:53)
[2020-04-02] MEDS: MELATONIN 5 MG TABLETS PO SCH (21:53)
[2020-04-02] MEDS: ATORVASTATIN CA 20 MG TABLET (FP) PO SCH (21:53)
[2020-04-03] MEDS: metFORMIN HCL 500 MG TABLET (FP) PO SCH ×2 (06:33→16:46)
[2020-04-03] MEDS: hydrOXYzine PAMOATE 25 MG CAPSULE (FP) PO SCH ×5 (06:33→21:40)
[2020-04-03] MEDS ORDERED: INSULIN (NOVOLOG) ASPART 100 UNITS/ML 10ML VIAL ONE ×2 (07:39→16:42)
[2020-04-03] MEDS: Insulin (LOG) Aspart 100 UNITS/ML VIAL SQ SCH ×2 (07:41→16:45)
[2020-04-03] MEDS: ASPIRIN 81 MG CHEWABLE TABLETS PO SCH (09:53)
[2020-04-03] MEDS: PRENATAL VITAMINS W/ FOLIC ACID TABLET (FP) PO SCH (09:53)
[2020-04-03] MEDS: amLODIPine BESYLATE 5 MG TABLET (FP) PO SCH (09:54)
[2020-04-03] MEDS: NICOTINE 21 MG/24 HOURS TOPICAL PATCH TD SCH (09:54)
[2020-04-03] MEDS: RILPIVIRINE HCL 25 MG TABLET PO SCH (10:32)
[2020-04-03] MEDS: EMTRICITABINE/TENOFOV ALAFENAM (DESCOVY) TABLET PO SCH (10:32)
[2020-04-03] MEDS: DOLUTEGRAVIR SODIUM 50 MG TABLET (NON-FORMULARY) PO SCH (10:32)
[2020-04-03] MEDS: THIAMINE HCL 100 MG TABLET (FP) PO SCH (21:40)
[2020-04-03] MEDS: INSULIN (LEVEMIR) 100 UNITS/ML UNITS SQ SCH (21:40)
[2020-04-03] MEDS: ATORVASTATIN CA 20 MG TABLET (FP) PO SCH (21:40)
[2020-04-03] MEDS: MELATONIN 5 MG TABLETS PO SCH (21:40)
[2020-04-04] MEDS: metFORMIN HCL 500 MG TABLET (FP) PO SCH ×2 (06:52→16:36)
[2020-04-04] MEDS: hydrOXYzine PAMOATE 25 MG CAPSULE (FP) PO SCH ×5 (06:52→21:34)
[2020-04-04] MEDS ORDERED: INSULIN (NOVOLOG) ASPART 100 UNITS/ML 10ML VIAL ONE ×2 (07:37→16:33)
[2020-04-04] MEDS: Insulin (LOG) Aspart 100 UNITS/ML VIAL SQ SCH ×2 (07:47→16:36)
[2020-04-04] MEDS: DOLUTEGRAVIR SODIUM 50 MG TABLET (NON-FORMULARY) PO SCH (07:48)
[2020-04-04] MEDS: ASPIRIN 81 MG CHEWABLE TABLETS PO SCH (10:21)
[2020-04-04] MEDS: PRENATAL VITAMINS W/ FOLIC ACID TABLET (FP) PO SCH (10:21)
[2020-04-04] MEDS: amLODIPine BESYLATE 5 MG TABLET (FP) PO SCH (10:21)
[2020-04-04] MEDS: EMTRICITABINE/TENOFOV ALAFENAM (DESCOVY) TABLET PO SCH (10:22)
[2020-04-04] MEDS: RILPIVIRINE HCL 25 MG TABLET PO SCH (10:22)
[2020-04-04] MEDS: NICOTINE 21 MG/24 HOURS TOPICAL PATCH TD SCH (10:23)
[2020-04-04] MEDS: MELATONIN 5 MG TABLETS PO SCH (21:34)
[2020-04-04] MEDS: ATORVASTATIN CA 20 MG TABLET (FP) PO SCH (21:34)
[2020-04-04] MEDS: INSULIN (LEVEMIR) 100 UNITS/ML UNITS SQ SCH (21:34)
[2020-04-04] MEDS: THIAMINE HCL 100 MG TABLET (FP) PO SCH (21:34)
[2020-04-05] MEDS: hydrOXYzine PAMOATE 25 MG CAPSULE (FP) PO SCH ×2 (06:57→09:59)
[2020-04-05] MEDS: metFORMIN HCL 500 MG TABLET (FP) PO SCH (06:57)
[2020-04-05 07:00] VITALS: BP 113/67; PULSE 85; TEMP 97.1
[2020-04-05] MEDS: DOLUTEGRAVIR SODIUM 50 MG TABLET (NON-FORMULARY) PO SCH (07:06)
[2020-04-05] MEDS ORDERED: INSULIN (NOVOLOG) ASPART 100 UNITS/ML 10ML VIAL ONE (07:47)
[2020-04-05] MEDS: Insulin (LOG) Aspart 100 UNITS/ML VIAL SQ SCH (07:50)
[2020-04-05] MEDS: EMTRICITABINE/TENOFOV ALAFENAM (DESCOVY) TABLET PO SCH (09:58)
[2020-04-05] MEDS: PRENATAL VITAMINS W/ FOLIC ACID TABLET (FP) PO SCH (09:58)
[2020-04-05] MEDS: ASPIRIN 81 MG CHEWABLE TABLETS PO SCH (09:59)
[2020-04-05] MEDS: amLODIPine BESYLATE 5 MG TABLET (FP) PO SCH (09:59)
[2020-04-05] MEDS: RILPIVIRINE HCL 25 MG TABLET PO SCH (09:59)
[2020-04-05] MEDS: NICOTINE 21 MG/24 HOURS TOPICAL PATCH TD SCH (09:59)
[2020-04-10] MEDS ORDERED: fluPHENAZine DECANOATE 125 MG/5ML VIAL IM ONE (10:00)
== END 2020-04-05 14:00 | disposition home or self-care (01) | DRG 895 ==
LOC: YASAS 11:17 → Y5N 15:22
PROVIDERS: ADMIT Allergy & Immunology; ATTEND Allergy & Immunology
PROC: HZ42ZZZ Group Counseling for Substance Abuse Treatment, Cognitive-Behavioral (ICD-10-PCS; principal; 2020-03-29)
DX: F10.20 Alcohol dependence, uncomplicated (principal); F14.20 Cocaine dependence, uncomplicated; F17.210 Nicotine dependence, cigarettes, uncomplicated; F25.1 Schizoaffective disorder, depressive type; F19.24 Other psychoactive substance dependence with psychoactive substance-induced mood disorder; I10 Essential (primary) hypertension; Z21 Asymptomatic human immunodeficiency virus [HIV] infection status; E11.9 Type 2 diabetes mellitus without complications; E78.5 Hyperlipidemia, unspecified; Z79.4 Long term (current) use of insulin; Z79.84 Long term (current) use of oral hypoglycemic drugs
CPT/HCPCS: 36415; 80053; 81003; 82962; 85027; 85660; 86780; C9803; U0003